=== PATIENT | female | born 1970 | race Caucasian/White ===

== ENCOUNTER 2020-03-08 05:23 | Emergency (ER) | payer BC, OTHER ==
[~2020-03-08] VITALS: Ht 160 cm; Wt 113.6 kg
[~2020-03-08 05:23] MED LIST: CARI350T PO; CLON-527 PO; TRAM50TA2 PO; VENL75CA55 PO
[2020-03-08 06:24] LABS: BASOPHILS % (AUTO) 0.1 % (0-1); EOSINOPHILS % (AUTO) 0.3 % (0-6); HEMATOCRIT 41.3 % (35.0-45.0); HEMOGLOBIN 13.8 g/dl (12.0-16.0); LYMPHOCYTES # (AUTO) 0.2 X10'3 (1.1-4.8); LYMPHOCYTES % (AUTO) 5.9 % (21-51); MEAN CORPUSCULAR HEMOGLOBIN 32.4 PG (27.0-31.0); MEAN CORPUSCULAR HGB CONC 33.5 g/dL (33.0-36.5); MEAN CORPUSCULAR VOLUME 96.7 FL (78-98); MEAN PLATELET VOLUME 7.7 FL (7.4-10.4); MONOCYTES # (AUTO) 0.2 X10'3 (0-0.9); NEUTROPHILS # (AUTO) 3.5 X10'3 (1.8-7.7); NEUTROPHILS % (AUTO) 89.7 % (42-75); PLATELET COUNT 255 X10'3 (140-440); RED BLOOD COUNT 4.28 X10'6 (4.20-5.60); RED CELL DISTRIBUTION WIDTH 13.7 % (11.5-14.5); WHITE BLOOD COUNT 3.9 X10'3 (4.5-11.0)
[2020-03-08 06:39] LABS: ALANINE AMINOTRANSFERASE 224 U/L (12-78); ALBUMIN 3.8 G/DL (3.4-5.0); ALBUMIN/GLOBULIN RATIO 0.9 (1.1-1.5); ALKALINE PHOSPHATASE 245 IU/L (46-116); ANION GAP 12 (8-16); ASPARTATE AMINO TRANSFERASE 684 U/L (10-37); BILIRUBIN,TOTAL 2.9 MG/DL (0.1-1.0); BLOOD UREA NITROGEN 7 MG/DL (7-18); BUN/CREATININE RATIO 6.7 (6.6-38.0); CALCIUM 9.5 MG/DL (8.5-10.1); CHLORIDE 101 MMOL/L (99-107); CREATININE 1.04 MG/DL (0.40-0.90); GLUCOSE 126 MG/DL (70-104); LIPASE 119 U/L (73-393); POTASSIUM 3.3 MMOL/L (3.5-5.1); SODIUM 138 MMOL/L (135-145); TOTAL CARBON DIOXIDE 25.1 MMOL/L (24-32); TOTAL PROTEIN 7.9 G/DL (6.4-8.2); eGFR 57 ML/MIN
[2020-03-08] MEDS ORDERED: pantoprazole 40 MG vial IV ONE (06:55)
[2020-03-08] MEDS ORDERED: proCHLORperazine 10 MG/2 ml inj IV ONE (06:55)
[2020-03-08 08:09] LABS: CLARITY,URINE SLIGHTLY CLOUDY (Clear); COLOR,URINE YELLOW (Yellow); GLUCOSE, URINE NEGATIVE (Neg); KETONES,URINE TRACE mg/dl (Neg); LEUKOCYTE ESTERASE ,URINE NEGATIVE (Neg); NITRITES, URINE NEGATIVE (Neg); OCCULT BLOOD,URINE TRACE-INTACT (Neg); PH,URINE 7.5 (4.8-8.0); PROTEIN,URINE 100 mg/dl (Neg)
[2020-03-08 08:17] LABS: UA COLLECTION TYPE STRAIGHT CATH
[2020-03-08 08:20] LABS: BACTERIA,URINE NONE SEEN /HPF (Neg); SQUAMOUS EPITHELIAL CELL,UR FEW /LPF (FEW); TRANSITIONAL EPI CELLS,URINE MODERATE /HPF; WBC,URINE NONE SEEN /HPF (0-4)
[2020-03-08 09:24] LABS: HCG SERUM QL POSITIVE
[2020-03-08 10:19] VITALS: BP 155/79
[2020-03-08 10:27] LABS: BETA HCG,QUANTITATIVE 12 mIU/ml
--- NOTE | 2020-03-08 11:23 | NUR ---
ULTRASOUND AT BEDSIDE
[2020-03-08] MEDS ORDERED: PANT-47 PO (12:01)
== END 2020-03-08 12:25 | disposition home or self-care (01) ==
LOC: ER 05:24
DX: K80.20 Calculus of gallbladder without cholecystitis without obstruction (principal); Z32.01 Encounter for pregnancy test, result positive; I10 Essential (primary) hypertension; G89.29 Other chronic pain; F41.9 Anxiety disorder, unspecified; F17.200 Nicotine dependence, unspecified, uncomplicated; G62.9 Polyneuropathy, unspecified; Z90.49 Acquired absence of other specified parts of digestive tract; Z72.89 Other problems related to lifestyle; Z79.899 Other long term (current) drug therapy
CPT/HCPCS: 36415; 71045; 76700; 76801; 76817; 80053; 81001; 83690; 84484; 84702; 84703; 85025; 93005; 96374; 96375; 99285; C9113; J0780